=== PATIENT | female | born 1960 | race Caucasian/White ===

== ENCOUNTER 2018-07-03 06:22 | Emergency (ER) | payer MEDICAID ==
[~2018-07-03] VITALS: Ht 177.8 cm; Wt 109.0 kg
[~2018-07-03 06:22] MED LIST: BACL10TA PO; BECL8.7A3 IH; BENZ200C59 PO; FAMO-1 PO; MONT10TA21 PO; OMEP20CA10 PO; ROPI1TAB4 PO
[2018-07-03] MEDS ORDERED: HYDROmorphone 1 mg/ml syringe IM ONE (07:10)
[2018-07-03] MEDS ORDERED: orphenadrine citrate 60mg/2ml inj. IM ONE (07:10)
[2018-07-03] MEDS ORDERED: ketorolac trometh inj. 60 MG/2 ML VIAL IM ONE (07:10)
[2018-07-03 08:55] VITALS: BP 154/90
[2018-07-03] MEDS ORDERED: proCHLORperazine 10 MG/2 ml inj IM ONE (09:00)
[2018-07-03] MEDS ORDERED: HYDR-4353 PO (09:20)
== END 2018-07-03 10:17 | disposition home or self-care (01) ==
LOC: ER 06:22
DX: M54.42 Lumbago with sciatica, left side (principal); G89.29 Other chronic pain; J44.9 Chronic obstructive pulmonary disease, unspecified; K21.9 Gastro-esophageal reflux disease without esophagitis; Z90.49 Acquired absence of other specified parts of digestive tract; Z98.890 Other specified postprocedural states; Z88.0 Allergy status to penicillin; Z88.1 Allergy status to other antibiotic agents; Z88.5 Allergy status to narcotic agent; Z88.8 Allergy status to other drugs, medicaments and biological substances; Z79.899 Other long term (current) drug therapy
CPT/HCPCS: 72100; 96372; 99283; J0780; J1170; J1885; J2360

== ENCOUNTER 2018-09-19 12:59 | Inpatient (IN) | payer MEDICAID ==
[~2018-09-19] VITALS: Ht 177.8 cm; Wt 109.0 kg
[2018-09-19 13:49] LABS: BASOPHILS % (AUTO) 0.5 % (0-1); EOSINOPHILS % (AUTO) 0.3 % (0-6); HEMATOCRIT 40.4 % (35.0-45.0); HEMOGLOBIN 14.1 g/dl (12.0-16.0); LYMPHOCYTES # (AUTO) 1.6 X10'3 (1.1-4.8); LYMPHOCYTES % (AUTO) 33.4 % (21-51); MEAN CORPUSCULAR HEMOGLOBIN 30.4 PG (27.0-31.0); MEAN CORPUSCULAR HGB CONC 34.7 g/dL (33.0-36.5); MEAN CORPUSCULAR VOLUME 87.6 FL (78-98); MEAN PLATELET VOLUME 7.4 FL (7.4-10.4); MONOCYTES # (AUTO) 0.5 X10'3 (0-0.9); MONOCYTES % (AUTO) 10.8 % (2-12); NEUTROPHILS # (AUTO) 2.7 X10'3 (1.8-7.7); PLATELET COUNT 180 X10'3 (140-440); RED BLOOD COUNT 4.62 X10'6 (4.20-5.60); RED CELL DISTRIBUTION WIDTH 13.3 % (11.5-14.5); WHITE BLOOD COUNT 4.9 X10'3 (4.5-11.0)
[2018-09-19 14:04] LABS: ALANINE AMINOTRANSFERASE 39 U/L (12-78); ALBUMIN 3.3 G/DL (3.4-5.0); ALBUMIN/GLOBULIN RATIO 0.8 (1.1-1.5); ALKALINE PHOSPHATASE 101 IU/L (46-116); ANION GAP 12 (8-16); ASPARTATE AMINO TRANSFERASE 43 U/L (10-37); BILIRUBIN,TOTAL 0.3 MG/DL (0.1-1.0); BLOOD UREA NITROGEN 6 MG/DL (7-18); BUN/CREATININE RATIO 7.7 (6.6-38.0); CALCIUM 8.9 MG/DL (8.5-10.1); CHLORIDE 99 MMOL/L (99-107); CREATININE 0.78 MG/DL (0.40-0.90); GLUCOSE 135 MG/DL (70-104); SODIUM 136 MMOL/L (135-145); TOTAL CARBON DIOXIDE 25.2 MMOL/L (24-32); TOTAL PROTEIN 7.4 G/DL (6.4-8.2); eGFR 76 ML/MIN
[2018-09-19] MEDS ORDERED: potassium Cl 20 mEq SR tablet PO STA (14:21)
[2018-09-19] MEDS ORDERED: CHOL2000 PO (14:30)
[2018-09-19] MEDS ORDERED: CYCL10TA26 PO (14:30)
[2018-09-19] MEDS ORDERED: SENN-162 PO (14:38)
[2018-09-19] MEDS ORDERED: BECL7.3A INH (14:38)
[2018-09-19] MEDS ORDERED: ALBU18HF2 INH (14:38)
[2018-09-19] MEDS ORDERED: DILT180C95 PO (14:38)
[2018-09-19] MEDS ORDERED: diphenhydrAMINE 50 mg/ml inj IV ONE (15:00)
[2018-09-19] MEDS ORDERED: methylPREDNISolone sod succ 125mg/2ml vial IV ONE (15:00)
[2018-09-19] MEDS ORDERED: albuterol 2.5 MG/3 ML nebule NEB ONE (15:05)
[2018-09-19 15:36] LABS: D-DIMER 0.52 MG/L FEU (0-0.50); PARTIAL THROMBOPLASTIN TIME 33 SECONDS (22-32)
[2018-09-19] MEDS ORDERED: albuterol 2.5 MG/3 ML nebule ONE (17:32)
[2018-09-19] MEDS ORDERED: benzonatate 100mg capsule PO ONE (18:00)
[2018-09-19 18:05] LABS: ABG BASE EXCESS -2.1 mmol/L (-2.0-3.0); ABG HCO3 21.4 mmol/L (22.0-26.0); ABG OXYGEN SATURATION 95.1 % (95-98); ABG PH (T) 7.429 (7.350-7.450); ABG PO2 (T) 72.1 mmHg (83-108); ALLEN'S TEST Positive; FCOHb 0.8 % (0.5-1.5); FMetHb 0.1 % (0.3-1.12); FO2Hb 94.2 % (94-100); TOTAL HEMOGLOBIN 14.8 G/dl (12.0-16.0)
[2018-09-19] MEDS ORDERED: magnesium 4gm in 100ml NS 100 ML IV PRN (18:15)
[2018-09-19] MEDS ORDERED: magnesium hydroxide 30ml (MOM) UD suspension PO PRN (18:15)
[2018-09-19] MEDS ORDERED: potassium Cl 20 mEq SR tablet PO PRN (18:15)
[2018-09-19] MEDS ORDERED: potassium Cl 40MEQ/NS 500ml 500 ML IV PRN ×2 (18:15)
[2018-09-19] MEDS ORDERED: acetaminophen 325mg tablet PO PRN ×2 (18:15)
[2018-09-19] MEDS ORDERED: magnesium 2GM in 50ml NS 50 ML IV PRN (18:15)
[2018-09-19] MEDS ORDERED: magnesium Cl slow-release 64mg tablet PO PRN (18:15)
[2018-09-19] MEDS ORDERED: ondansetron/PF 4mg/2ml inj IV PRN (18:15)
[2018-09-19] MEDS: methylPREDNISolone sod succ 125mg/2ml vial IV SCH (18:39)
[2018-09-19] MEDS: albuterol 2.5 MG/3 ML nebule NEB SCH ×2 (19:04→23:14)
--- NOTE | 2018-09-19 19:13 | NUR ---
1ST ATTEMPT TO CALL REPORT @ 191, RECEIVING NURSE UNAVAILABLE
[2018-09-19] MEDS ORDERED: albuterol 2.5 MG/3 ML nebule NEB SCH (20:00)
[2018-09-19 20:15] VITALS: BP 120/72
[2018-09-19] MEDS: ROPINIRole 1mg tablet PO SCH (20:20)
[2018-09-19] MEDS: heparin, porcine 5000 units/ml vial SQ SCH (20:30)
[2018-09-19] MEDS ORDERED: temazepam 15mg capsule PO PRN (21:00)
[2018-09-19] MEDS: potassium Cl 20 mEq SR tablet PO PRN (21:43)
[2018-09-20] VITALS: BP 124/59
[2018-09-20] MEDS: potassium Cl 20 mEq SR tablet PO PRN (02:02)
[2018-09-20] MEDS: albuterol 2.5 MG/3 ML nebule NEB SCH ×3 (04:13→11:39)
[2018-09-20 05:17] LABS: MAGNESIUM 1.9 MG/DL (1.5-2.4); POTASSIUM 4.4 MMOL/L (3.5-5.1)
--- NOTE | 2018-09-20 06:35 | NUR ---
Problems reprioritized. Patient report given, questions answered & plan of care reviewed with Rosi MEYERS.
[2018-09-20 07:00] VITALS: BP 140/74
[2018-09-20] MEDS ORDERED: pantoprazole 40mg Tablet.DR PO SCH ×2 (07:30→19:25)
[2018-09-20] MEDS: K and/or MAG REPLACEMENT MC SCH (08:00)
[2018-09-20] MEDS ORDERED: non-formulary drug (Omeprazole 2 CAP) PO SCH (08:00)
[2018-09-20] MEDS: methylPREDNISolone sod succ 125mg/2ml vial IV SCH ×2 (10:21→16:30)
[2018-09-20] MEDS: levoFLOXACIN-Levaquin 500mg/D5 100 ML IV SCH (10:21)
[2018-09-20] MEDS: heparin, porcine 5000 units/ml vial SQ SCH ×2 (10:24→20:06)
[2018-09-20] MEDS: mag hydrox/Alum hydrox/simeth 30ml oral suspension PO PRN ×2 (10:51→19:18)
[2018-09-20] MEDS: diltiazem CD 180mg cap (once-daily) PO SCH (10:51)
[2018-09-20 11:00] VITALS: BP 117/53
--- NOTE | 2018-09-20 12:29 | NUR ---
PAGER ID: [phone] MESSAGE: Please call me to discuss patient care. Rosi MEYERS [phone] Page MD to discuss that the pt. states "breathing treatment not working" diarrhea since Sunday, pt. now states she has a sore throat, and that the pt. states decrease in appetite and RUQ abdominal pain. Awaiting response from .
--- NOTE | 2018-09-20 12:33 | NUR ---
return phone call. states he has not rounded on pt. yet and would like to wait to assess pt. before addressing different concerns. Will look to round with
[2018-09-20] MEDS ORDERED: benzocaine/menthol oral lozeng 1 EACH BOX MM PRN (13:35)
--- NOTE | 2018-09-20 13:49 | NUR ---
PAGER ID: [phone] MESSAGE: [phone] Fatoumata Huerta Allergic to ingredient in Atrovent. Please call me me to clarify orders. Thank you- Rosi MEYERS [phone] responded. Stated he will call the pharmacy and address and enter new inhalant orders.
[2018-09-20] MEDS: levalbuterol 0.63mg/3ml nebule IH SCH ×2 (14:51→20:35)
--- NOTE | 2018-09-20 15:51 | NUR ---
Malnutrition consult: Pt seen at bedside endorses a good appetite. Pt previously on a regular diet with documented PO intake 100% likely meeting nutrient needs. No visible fat or muscle wasting noted at the time of RD visit. Pt with no documented edema or decrease in muscle strength. Pt currently does not meet criteria for malnutrition. Nutrition consult re: pt/family education for poor diet. Pt given written and verbal healthy nutrition therapy education with RD contact information. Will remain available. Addendum: 09/20/18 at [address] Amended: Links added.
[2018-09-20 16:32] LABS: C DIFF ANTIGEN NEGATIVE (NEGATIVE); C DIFF SPECIMEN=DIARRHEA? ACCEPTABLE; C DIFFICILE TOXINS A&B NEGATIVE (Neg)
[2018-09-20 18:00] VITALS: BP 135/77
--- NOTE | 2018-09-20 18:29 | NUR ---
PT SITTING UP AT SIDE OF BED, AWAKE AND ALERT IN A STABLE CONDITION, EATING HER DINNER. REPORT GIVEN TO AYALA MEYERS.
--- NOTE | 2018-09-20 18:50 | NUR ---
Patient in room [facility]. I have received report from LUIGI Aranda and had the opportunity to ask questions and assume patient care. Addendum: 09/20/18 at 1850 by Ilene Mendoza RN Amended: Links added.
[2018-09-20] MEDS: ROPINIRole 1mg tablet PO SCH (20:05)
[2018-09-20] MEDS ORDERED: famotidine 20mg tablet PO SCH (21:00)
[2018-09-21] VITALS: BP 120/51
[2018-09-21] MEDS: methylPREDNISolone sod succ 125mg/2ml vial IV SCH ×2 (00:09→08:10)
[2018-09-21] MEDS: levalbuterol 0.63mg/3ml nebule IH SCH ×2 (02:18→08:35)
--- NOTE | 2018-09-21 06:25 | NUR ---
Patient in room [facility]. I have received report from LUIGI Holm and had the opportunity to ask questions and assume patient care.
--- NOTE | 2018-09-21 06:47 | NUR ---
Problems reprioritized. Patient report given, questions answered & plan of care reviewed with LUIGI MOLINA.
[2018-09-21 07:27] VITALS: BP 115/61
[2018-09-21] MEDS ORDERED: pantoprazole 40mg Tablet.DR PO SCH (07:30)
[2018-09-21 07:50] LABS: ALBUMIN 3.1 G/DL (3.4-5.0); ANION GAP 7 (8-16); BLOOD UREA NITROGEN 10 MG/DL (7-18); BUN/CREATININE RATIO 12.8 (6.6-38.0); CALCIUM 9.4 MG/DL (8.5-10.1); CHLORIDE 105 MMOL/L (99-107); CREATININE 0.78 MG/DL (0.40-0.90); GLUCOSE 149 MG/DL (70-104); MAGNESIUM 2.3 MG/DL (1.5-2.4); POTASSIUM 4.4 MMOL/L (3.5-5.1); SODIUM 139 MMOL/L (135-145); TOTAL CARBON DIOXIDE 26.9 MMOL/L (24-32); eGFR 76 ML/MIN
[2018-09-21] MEDS: K and/or MAG REPLACEMENT MC SCH (08:00)
[2018-09-21] MEDS: heparin, porcine 5000 units/ml vial SQ SCH (08:10)
[2018-09-21] MEDS: diltiazem CD 180mg cap (once-daily) PO SCH (08:10)
[2018-09-21] MEDS: levoFLOXACIN-Levaquin 500mg/D5 100 ML IV SCH (08:11)
[2018-09-21] MEDS ORDERED: LEVO500T2 PO (10:32)
[2018-09-21] MEDS ORDERED: PRED10TA23 PO (10:32)
[2018-09-21 11:00] VITALS: BP 111/50
--- NOTE | 2018-09-21 12:17 | NUR ---
O2 Sat at rest on room air:_87__% If below 89%: Recovery O2 Sat at rest on __2_LPM:__94_%:___% via____NC (mask/nasal cannula, etc..) No further documentation is necessary. If O2 Sat did not drop below 89% on room air,ambulate patient on room air. O2 Sat while ambulating on room air:___% Recovery O2 Sat while ambulating on ___LPM:___% No further documentation is necessary. If patient does not drop below 89% while ambulating, he/she does not qualify for home O2.
--- NOTE | 2018-09-21 14:10 | NUR ---
DC inst provided to pt. IV DC'd by other RN while primary RN on lunch. All belongings sent w/pt. WC to front lobby.
== END 2018-09-21 14:38 | disposition home or self-care (01) | DRG 145 ==
LOC: ER 12:59 → ED HOLD 18:15 → SUR 3N 20:00
PROVIDERS: ADMIT Internal Medicine; ATTEND Internal Medicine
DX: J20.9 Acute bronchitis, unspecified (principal); J44.0 Chronic obstructive pulmonary disease with (acute) lower respiratory infection; J44.1 Chronic obstructive pulmonary disease with (acute) exacerbation; J45.901 Unspecified asthma with (acute) exacerbation; K21.9 Gastro-esophageal reflux disease without esophagitis; R06.03 Acute respiratory distress; E87.6 Hypokalemia; R19.7 Diarrhea, unspecified; Z87.891 Personal history of nicotine dependence; Z90.49 Acquired absence of other specified parts of digestive tract; Z88.1 Allergy status to other antibiotic agents; Z88.5 Allergy status to narcotic agent; Z88.0 Allergy status to penicillin; Z88.8 Allergy status to other drugs, medicaments and biological substances
CPT/HCPCS: 36415; 36600; 71046; 80048; 80053; 82803; 83605; 83735; 83880; 84132; 84484; 85018; 85025; 85379; 85610; 85730; 87040; 87045; 87046; 87070; 87324; 87449; 87502; 87503; 93005; 94640; 94760; 96374; 96375; 99285; G0378; J1200; J1644; J1956; J2930; J7614

== ENCOUNTER 2019-02-21 05:36 | Day surgery (SDC) | payer MEDICAID ==
[2019-02-11 12:04] LABS: BASOPHILS # (AUTO) 0.1 X10'3 (0-0.2); BASOPHILS % (AUTO) 0.8 % (0-1); EOSINOPHILS # (AUTO) 0.2 X10'3 (0-0.9); EOSINOPHILS % (AUTO) 1.4 % (0-6); LYMPHOCYTES # (AUTO) 2.7 X10'3 (1.1-4.8); LYMPHOCYTES % (AUTO) 23.6 % (21-51); MEAN CORPUSCULAR HEMOGLOBIN 30.2 PG (27.0-31.0); MEAN CORPUSCULAR HGB CONC 34.3 g/dL (33.0-36.5); MEAN CORPUSCULAR VOLUME 88.2 FL (78-98); MEAN PLATELET VOLUME 7.8 FL (7.4-10.4); MONOCYTES # (AUTO) 0.7 X10'3 (0-0.9); MONOCYTES % (AUTO) 5.8 % (2-12); NEUTROPHILS # (AUTO) 7.9 X10'3 (1.8-7.7); NEUTROPHILS % (AUTO) 68.4 % (42-75); PRE OP HEMATOCRIT 43.4 % (35.0-45.0); PRE OP HEMOGLOBIN 14.9 g/dL (12.0-16.0); PRE OP PLATELET COUNT 313 X10'3 (140-440); RED BLOOD COUNT 4.93 X10'6 (4.20-5.60); RED CELL DISTRIBUTION WIDTH 13.2 % (11.5-14.5)
[2019-02-11 12:18] LABS: ALBUMIN 3.8 G/DL (3.4-5.0); ALKALINE PHOSPHATASE 104 IU/L (46-116); BLOOD UREA NITROGEN 7 MG/DL (7-18); BUN/CREATININE RATIO 7.4 (6.6-38.0); CALCIUM 9.4 MG/DL (8.5-10.1); CHLORIDE 104 MMOL/L (99-107); CREATININE 0.95 MG/DL (0.40-0.90); PRE OP ALT 36 U/L (30-65); PRE OP ANION GAP 11 (8-16); PRE OP AST 21 U/L (10-37); PRE OP BILIRUB, TOTAL 0.3 MG/DL (0.0-1.0); PRE OP GLUCOSE 124 MG/DL (70-104); PRE OP POTASSIUM 4.2 MMOL/L (3.4-5.1); PRE OP SODIUM 140 MMOL/L (135-145); TOTAL CARBON DIOXIDE 25.5 MMOL/L (24-32); TOTAL PROTEIN 7.8 G/DL (6.4-8.2); eGFR 60 ML/MIN
[2019-02-21] VITALS (9 sets, daily range): BP systolic 124–146; BP diastolic 69–82
[~2019-02-21] VITALS: Ht 177.8 cm; Wt 111.7 kg
[~2019-02-21 05:36] MED LIST changes: -BACL10TA PO; +BECL7.3A INH; -BECL8.7A3 IH; -BENZ200C59 PO; +CYCL10TA26 PO; +DILT-36 PO; -FAMO-1 PO; +FAMO40TA7 PO; +LEVA15HF4 INH; -MONT10TA21 PO; -OMEP20CA10 PO; +OMEP20CA11 PO; +TIOT4MIS5 INH; +albuterol 2.5 MG/3 ML nebule NEB ONE; +clindamycin-Cleocin 900mg/D5W 50 ML IV ONE; +famotidine 20mg tablet PO ONE; +ringers solution, lacted 1,000 ML IV SCH
[2019-02-21] MEDS ORDERED: LIDOcaine 1% (10mg/ml) 2ml vial ONE (06:04)
[2019-02-21] MEDS ORDERED: BUPIVAcaine/PF 2.5 mg/ml (0.25%) 30ml vial ONE ×2 (06:47→08:32)
[2019-02-21] MEDS ORDERED: ipratropium/albuterol 3ml nebule NEB PRN (07:10)
[2019-02-21] MEDS ORDERED: fentaNYL /PF 50mcg/ml 5ml ampule ONE (07:22)
[2019-02-21] MEDS ORDERED: midazolam 2 mg/2 ml injection ONE (07:22)
[2019-02-21] MEDS ORDERED: phenylephrine 10mg/ml inj. ONE (07:33)
[2019-02-21] MEDS ORDERED: ePHEDrine 50MG/ML INJ. ONE ×2 (07:33→10:12)
[2019-02-21] MEDS ORDERED: acetaminophen 1000 MG/100ml vial IV ONE (07:33)
[2019-02-21] MEDS ORDERED: sevoflurane 250ml liquid IH ONE (07:33)
[2019-02-21] MEDS ORDERED: ketamine 50mg/5ml syringe ONE (07:54)
[2019-02-21] MEDS ORDERED: ringers solution, lacted 1,000 ML IV SCH (08:41)
[2019-02-21] MEDS ORDERED: morphine 4 MG/ML inj SYRINge IV PRN ×2 (08:45)
[2019-02-21] MEDS ORDERED: HYDROmorphone inj. 0.5 MG/0.5 ML DISP.SYRIN IV PRN ×2 (08:45)
[2019-02-21] MEDS ORDERED: proCHLORperazine 10 MG/2 ml inj IV PRN (08:45)
--- NOTE | 2019-02-21 09:10 | NUR ---
Received from OR via BED, accompanied by Anesthesiologist DR MANDEL-- and report given by Anesthesiolgist. PATIENT A&OX4, DENIES PAIN, V/S WNL, NEUROVASCULAR CHECKS INTACT, 20G PIV RUE, SCD ON, DRESSING TO LEFT SHOULDER CDI WITH SLING ON WELL
[2019-02-21] MEDS ORDERED: HYDROcodone/acetaminophen 10/325mg tab PO PRN (09:20)
[2019-02-21] MEDS ORDERED: neostigmine methylsulfate 1 MG/ML 10ml vial ONE (10:12)
[2019-02-21] MEDS ORDERED: propofol inj 20 ML IV ONE (10:12)
[2019-02-21] MEDS ORDERED: rocuronium 10mg/ml inj IV ONE (10:12)
[2019-02-21] MEDS ORDERED: dexamethasone sod phosphate 4mg/ml inj. ONE (10:12)
[2019-02-21] MEDS ORDERED: LIDOcaine 2% (20mg/ml) 5ml vial ONE (10:12)
[2019-02-21] MEDS ORDERED: glycopyrrolate 0.2mg/ml inj ONE (10:12)
--- NOTE | 2019-02-21 10:20 | NUR ---
PATIENT A&OX4, DENIES PAIN, V/S WNL, NEUROVASCULAR CHECKS INTACT, CORRECTION PIV WAS NOT 20 IT WAS 18G PIV RUE D/C , SCD ON, DRESSING TO LEFT SHOULDER CDI WITH SLING ON WELL. I HAVE REVIEWED D/C INSTRUCTIONS WITH PATIENT AND FAMILY AND THEY HAVE VERBALIZED UNDERSTANDING. PATIENT D/C HOME WITH ALL BELONGINGS AND FAMILY GAVE TRANSPORT HOME.
== END 2019-02-21 10:20 | disposition home or self-care (01) ==
LOC: PAS 05:36
PROVIDERS: ATTEND Orthopaedic Surgery
DX: M19.012 Primary osteoarthritis, left shoulder (principal); M75.42 Impingement syndrome of left shoulder; M65.822 Other synovitis and tenosynovitis, left upper arm; M75.52 Bursitis of left shoulder; J43.9 Emphysema, unspecified; I10 Essential (primary) hypertension; M19.90 Unspecified osteoarthritis, unspecified site; K21.9 Gastro-esophageal reflux disease without esophagitis; M81.0 Age-related osteoporosis without current pathological fracture; G89.4 Chronic pain syndrome; E66.01 Morbid (severe) obesity due to excess calories; Z68.36 Body mass index [BMI] 36.0-36.9, adult; Z72.89 Other problems related to lifestyle; Z79.899 Other long term (current) drug therapy; Z88.1 Allergy status to other antibiotic agents; Z88.8 Allergy status to other drugs, medicaments and biological substances; Z88.0 Allergy status to penicillin; Z98.890 Other specified postprocedural states; Z87.891 Personal history of nicotine dependence
CPT/HCPCS: 29824; 29826; 36415; 80053; 82948; 85025; 93005; 94640; 94760; J0131; J1100; J2001; J2250; J2370; J2704; J2710; J3010; J3490; J7120; A4618; A6449; A7000

== ENCOUNTER 2021-10-11 05:40 | Inpatient (IN) | payer MEDICAID ==
[2021-10-06 15:02] LABS: BASOPHILS # (AUTO) 0.1 X10'3 (0-0.2); EOSINOPHILS # (AUTO) 0.2 X10'3 (0-0.9); EOSINOPHILS % (AUTO) 1.7 % (0-6); LYMPHOCYTES # (AUTO) 3.5 X10'3 (1.1-4.8); LYMPHOCYTES % (AUTO) 29.6 % (21-51); MEAN CORPUSCULAR HGB CONC 33.5 g/dL (33.0-36.5); MEAN CORPUSCULAR VOLUME 98.7 FL (78-98); MEAN PLATELET VOLUME 7.6 FL (7.4-10.4); MONOCYTES # (AUTO) 0.7 X10'3 (0-0.9); MONOCYTES % (AUTO) 6.4 % (2-12); NEUTROPHILS # (AUTO) 7.2 X10'3 (1.8-7.7); NEUTROPHILS % (AUTO) 61.3 % (42-75); PRE OP HEMATOCRIT 42.2 % (35.0-45.0); PRE OP HEMOGLOBIN 14.1 g/dL (12.0-16.0); PRE OP PLATELET COUNT 351 X10'3 (140-440); RED BLOOD COUNT 4.28 X10'6 (4.20-5.60); RED CELL DISTRIBUTION WIDTH 13.2 % (11.5-14.5)
[2021-10-06 15:19] LABS: ALKALINE PHOSPHATASE 98 IU/L (46-116); BLOOD UREA NITROGEN 8 MG/DL (7-18); BUN/CREATININE RATIO 9.8 (6.6-38.0); CALCIUM 9.4 MG/DL (8.5-10.1); CHLORIDE 101 MMOL/L (99-107); CREATININE 0.82 MG/DL (0.40-0.90); PRE OP ALT 16 U/L (30-65); PRE OP ANION GAP 10 (8-16); PRE OP AST 13 U/L (10-37); PRE OP BILIRUB, TOTAL 0.3 MG/DL (0.0-1.0); PRE OP GLUCOSE 93 MG/DL (70-104); PRE OP POTASSIUM 4.3 MMOL/L (3.4-5.1); PRE OP SODIUM 136 MMOL/L (135-145); TOTAL CARBON DIOXIDE 24.8 MMOL/L (24-32); TOTAL PROTEIN 8.1 G/DL (6.4-8.2); eGFR 71 ML/MIN
[2021-10-11] VITALS (33 sets, daily range): BP systolic 75–127; BP diastolic 44–64
[~2021-10-11] VITALS: Ht 177.8 cm; Wt 101.5 kg
[~2021-10-11 05:40] MED LIST changes: +DICL-343 PO; +MONT-40 PO; -OMEP20CA11 PO; +OMEP20CA15 PO; +PRAV40TA3 PO; -ROPI1TAB4 PO; +ROPI1TAB6 PO; +acetaminophen 325mg tablet PO ONE; -albuterol 2.5 MG/3 ML nebule NEB ONE; +cefazolin/dext.iso 2gm/50ml IV ONE; +celeCOXIB 100mg capsule PO ONE; -clindamycin-Cleocin 900mg/D5W 50 ML IV ONE; +gabapentin 300mg capsule PO ONE; +metoclopramide 5 mg/ml inj IV ONE; +oxyCODONE SR 10mg (sust. release) tab -2 tabs (20mg) PO ONE; +tranexamic acid inj. 1,000 MG in 0.7% saline 100 ML PMX IV ONE; +vancomycin 1,500 MG in NS 300ml IV soln IV ONE
[2021-10-11] MEDS ORDERED: HYDROcodone/acetaminophen 10/325mg tab PO PRN (06:30)
[2021-10-11] MEDS ORDERED: levalbuterol 1.25mg/0.5ml nebule IH PRN ×2 (06:30→08:50)
[2021-10-11] MEDS ORDERED: HYDROmorphone 1 mg/ml syringe IV PRN (06:30)
[2021-10-11] MEDS ORDERED: magnesium hydroxide 30ml (MOM) UD suspension PO PRN (06:30)
[2021-10-11] MEDS ORDERED: diphenhydrAMINE 25mg capsule PO PRN ×2 (06:30)
[2021-10-11] MEDS ORDERED: acetaminophen 325mg tablet PO PRN (06:30)
[2021-10-11] MEDS: potassium cl 20mEq in 1/2 NS 1,000 ML IV SCH ×3 (06:30→22:30)
[2021-10-11] MEDS ORDERED: HYDROmorphone inj. 0.5 MG/0.5 ML DISP.SYRIN IV PRN (06:30)
[2021-10-11] MEDS ORDERED: bisacodyl 10mg suppository rectal RC PRN (06:30)
--- NOTE | 2021-10-11 06:50 | NUR ---
PT PREPPED FOR SURGERY, COMPLAINING OF A 10 OUT OF 10 PAIN. PATIENT STATES SHE HAS CHRONIC BACK PAINAFTER HER FUSION, SHE IS LYING ON HER LEFT SIDE, STATES THE PAIN IS BETTER THIS WAY. BILATERAL POSTERIAL TIBIAL PULSES ARE PALPABLE, FEET ARE WARM AND DRY, PALE IN COLOR. SENSATION IS INTACT BILATERALLY
[2021-10-11] MEDS ORDERED: sevoflurane 250ml liquid IH ONE (07:12)
[2021-10-11] MEDS ORDERED: MIDAZolam 1 MG/ML 5ML VIAL ONE (07:13)
[2021-10-11] MEDS ORDERED: FENTANYL CITRATE/PF 50 MCG/1 ML VIAL ONE (07:13)
[2021-10-11] MEDS ORDERED: morphine /PF 1mg/ml 10ml inj. ONE (07:14)
[2021-10-11] MEDS ORDERED: ketorolac trometh. 30mg/ml inj. ONE (07:18)
[2021-10-11] MEDS ORDERED: cloNIDine hcl/PF 100mcg/ml inj ONE (07:19)
[2021-10-11] MEDS ORDERED: ROPIVAcaine 0.5% (5mg/ml) 30ml vial ONE (07:19)
[2021-10-11] MEDS ORDERED: epiNEPHrine 1 mg/ml inj ONE (07:19)
[2021-10-11] MEDS: gabapentin 300mg capsule PO SCH ×3 (08:00→21:19)
[2021-10-11] MEDS ORDERED: vancomycin 1,000mg inj ONE (08:00)
[2021-10-11] MEDS: clindamycin-Cleocin 900mg/D5W 50 ML IV SCH ×3 (08:00→23:45)
[2021-10-11] MEDS: ascorbic acid 500mg tablet PO SCH ×2 (08:00→21:20)
[2021-10-11] MEDS ORDERED: ondansetron/PF 4mg/2ml inj IV PRN (08:25)
[2021-10-11] MEDS ORDERED: morphine 2 MG/ML inj. syringe IV PRN (08:25)
[2021-10-11] MEDS ORDERED: diphenhydrAMINE 50 mg/ml inj IV PRN (08:25)
[2021-10-11] MEDS ORDERED: ringers solution, lacted 1,000 ML IV SCH (08:25)
[2021-10-11] MEDS ORDERED: morphine 4 MG/ML inj SYRINge IV PRN (08:25)
[2021-10-11] MEDS ORDERED: naloxone 2mg/2ml inj 2 MG in normal saline 500ml IV soln 500 ML IV PRN (08:25)
[2021-10-11] MEDS ORDERED: proCHLORperazine 10 MG/2 ml inj IV PRN (08:25)
[2021-10-11] MEDS: aspirin 325mg tablet PO SCH (08:30)
--- NOTE | 2021-10-11 08:43 | NUR ---
Received from OR via hospital bed, accompanied by Anesthesiologist Dr. Garcia and CANE LOADER and report given by Anesthesiolgist. Pt arrives drowsy but awake with verbal stimuli, dressing to R hip, clean/dry/intact, minesh drain intact with green light illumination. Pt denies pain. Giving 500 LR bolus per anesthesiologist. Addendum: 10/11/21 at 0910 by Liz Gilmore RN Amended: Links added.
[2021-10-11] MEDS ORDERED: levalbuterol 0.63mg/3ml nebule IH PRN (09:10)
[2021-10-11] MEDS ORDERED: albumin (Human) 5% 250ml 250 ML IV ONE ×2 (10:15→11:45)
[2021-10-11] MEDS ORDERED: tranexamic acid 1gm/0.7% sal. 100 ML IV ONE (12:00)
--- NOTE | 2021-10-11 12:33 | NUR ---
pt's SBP has remained in avgerage of 80's, with 1 LR, and 2x albumin 5% given. Pt has been cognitive since coming from OR, aware of pt status throughout stay in PACU and has approved discharge to surgical floor. Report called to receiving RN Torri. Transferred via bed Belongings . Receiving RN at bedside upon delivery, bed in lowest position with call light in reach. Pt oriented to room safety. side rails up x2. Special Issues communicated to receiving nurse; yes. Addendum: 10/11/21 at 1625 by Liz Gilmore RN Amended: Links added.
--- NOTE | 2021-10-11 16:15 | NUR ---
Per Dr. Garcia PROTECTIVE SERVICES SOCIAL WORKER checked on pt's void status with primary RN. No void by patient at this point, advised to bladder scan and follow up. Addendum: 10/11/21 at 1625 by Liz Gilmore RN Amended: Links added.
--- NOTE | 2021-10-11 18:33 | NUR ---
Patient in room [facility]. I have received report from judy MEYERS and had the opportunity to ask questions and assume patient care. Addendum: 10/11/21 at 1834 by Yuliana Jesus RN Torri MEYERS
--- NOTE | 2021-10-11 18:35 | NUR ---
Patient in room [facility]. I have received report from LUIGI TIMMONS FROM [facility]ERY and had the opportunity to ask questions and assume patient care.
--- NOTE | 2021-10-11 18:35 | NUR ---
Problems reprioritized. Patient report given, questions answered & plan of care reviewed with LUIGI GARZA.
[2021-10-11] MEDS ORDERED: vancomycin/NS 1 GM ADD-VANTAGE 250 ML IV SCH (20:00)
[2021-10-11] MEDS ORDERED: sennosides 8.6mg tablet PO SCH (21:00)
[2021-10-11] MEDS ORDERED: pravastatin 40mg tablet PO SCH (21:00)
[2021-10-11] MEDS: ROPINIRole 1mg tablet PO SCH (21:19)
[2021-10-11] MEDS: HYDROcodone/acetaminophen 10/325mg tab PO PRN (23:45)
[2021-10-12] VITALS: BP 127/50
[2021-10-12] MEDS: levalbuterol 0.63mg/3ml nebule IH SCH ×3 (05:58→07:23)
[2021-10-12] MEDS: ipratropium 0.5 MG/2.5ML nebule IH SCH ×3 (05:59→10:33)
[2021-10-12] MEDS: budesonide 0.5mg/2ml UD nebule IH SCH ×2 (05:59→07:23)
[2021-10-12 06:00] VITALS: BP 88/53
[2021-10-12 06:27] LABS: BASOPHILS % (AUTO) 0.5 % (0-1); EOSINOPHILS # (AUTO) 0.2 X10'3 (0-0.9); EOSINOPHILS % (AUTO) 2.2 % (0-6); HEMATOCRIT 31.7 % (35.0-45.0); HEMOGLOBIN 11.2 g/dl (12.0-16.0); LYMPHOCYTES # (AUTO) 1.8 X10'3 (1.1-4.8); LYMPHOCYTES % (AUTO) 18.2 % (21-51); MEAN CORPUSCULAR HEMOGLOBIN 34.6 PG (27.0-31.0); MEAN CORPUSCULAR HGB CONC 35.3 g/dL (33.0-36.5); MEAN CORPUSCULAR VOLUME 97.8 FL (78-98); MEAN PLATELET VOLUME 7.4 FL (7.4-10.4); MONOCYTES # (AUTO) 0.8 X10'3 (0-0.9); MONOCYTES % (AUTO) 7.8 % (2-12); NEUTROPHILS # (AUTO) 7.2 X10'3 (1.8-7.7); NEUTROPHILS % (AUTO) 71.3 % (42-75); PLATELET COUNT 231 X10'3 (140-440); RED BLOOD COUNT 3.25 X10'6 (4.20-5.60); RED CELL DISTRIBUTION WIDTH 12.7 % (11.5-14.5); WHITE BLOOD COUNT 10.1 X10'3 (4.5-11.0)
[2021-10-12] MEDS: potassium cl 20mEq in 1/2 NS 1,000 ML IV SCH (06:30)
--- NOTE | 2021-10-12 06:41 | NUR ---
Patient in room [facility]. I have received report from rekha kaplan and had the opportunity to ask questions and assume patient care.
--- NOTE | 2021-10-12 06:41 | NUR ---
Problems reprioritized. Patient report given, questions answered & plan of care reviewed with Yumiko MEYERS.
[2021-10-12 06:46] LABS: CHLORIDE 101 MMOL/L (99-107); POTASSIUM 4.6 MMOL/L (3.5-5.1); SODIUM 135 MMOL/L (135-145)
[2021-10-12 06:56] LABS: ANION GAP 9 (8-16); TOTAL CARBON DIOXIDE 24.7 MMOL/L (24-32)
[2021-10-12 07:20] VITALS: BP 92/62
[2021-10-12] MEDS: ascorbic acid 500mg tablet PO SCH (07:27)
[2021-10-12] MEDS: ROPINIRole 1mg tablet PO SCH (07:28)
[2021-10-12] MEDS: gabapentin 300mg capsule PO SCH (07:28)
[2021-10-12] MEDS: aspirin 325mg tablet PO SCH (07:29)
[2021-10-12] MEDS ORDERED: pantoprazole 40mg Tablet.DR PO SCH (07:30)
[2021-10-12] MEDS ORDERED: multivitamins, therapeutics tablet PO SCH (08:00)
[2021-10-12] MEDS ORDERED: diltiazem CD 180mg cap (once-daily) PO SCH (08:00)
[2021-10-12] MEDS ORDERED: montelukast 10mg tablet PO SCH (08:00)
[2021-10-12] MEDS ORDERED: famotidine 20mg tablet PO SCH (08:00)
[2021-10-12] MEDS: HYDROcodone/acetaminophen 10/325mg tab PO PRN (09:54)
--- NOTE | 2021-10-12 13:00 | NUR ---
PT DISCHARGED IN STABLE CONDITION. LEFT FACILITY IN PRIVATE VEHICLE WITH FAMILY. IV DC. FOLLOW UP INSTRUCTIONS GIVEN, ALL QUESTIONS ANSWERED. ALL BELONGINGS IN HAND. Addendum: 10/12/21 at 1551 by Loreto Anguiano RN Amended: Links added.
[2021-10-12] MEDS ORDERED: celeCOXIB 100mg capsule PO SCH (20:00)
== END 2021-10-12 12:48 | disposition home or self-care (01) | DRG 324 ==
LOC: PAS IN 05:40 → SUR 3N 12:33
PROVIDERS: ADMIT Orthopaedic Surgery; ATTEND Orthopaedic Surgery
PROC: 0SR906Z Replacement of Right Hip Joint with Oxidized Zirconium on Polyethylene Synthetic Substitute, Open Approach (ICD-10-PCS; principal; 2021-10-11 07:12)
DX: M16.11 Unilateral primary osteoarthritis, right hip (principal); G89.29 Other chronic pain; I10 Essential (primary) hypertension; J43.9 Emphysema, unspecified; M54.9 Dorsalgia, unspecified; K21.9 Gastro-esophageal reflux disease without esophagitis; Z79.51 Long term (current) use of inhaled steroids; Z79.82 Long term (current) use of aspirin; Z87.891 Personal history of nicotine dependence; Z88.0 Allergy status to penicillin; Z88.8 Allergy status to other drugs, medicaments and biological substances; Z79.899 Other long term (current) drug therapy
CPT/HCPCS: 36415; 71046; 72170; 80051; 80053; 82948; 85025; 86885; 86900; 86901; 87081; 94640; 94760; 97116; 97161; 97530; A4615; A7000; C1776; G0378; J0171; J0735; J1170; J1885; J2250; J2274; J2765; J2795; J3010; J3370; J3480; J3490; J7120; J7614; P9045; U0003; U0005

== ENCOUNTER 2022-06-08 11:24 | Inpatient (IN) | payer MEDICAID ==
[2022-06-06 10:04] LABS: BASOPHILS # (AUTO) 0.1 X10'3 (0-0.2); BASOPHILS % (AUTO) 0.6 % (0-1); EOSINOPHILS # (AUTO) 0.3 X10'3 (0-0.9); EOSINOPHILS % (AUTO) 2.4 % (0-6); LYMPHOCYTES # (AUTO) 2.7 X10'3 (1.1-4.8); MEAN CORPUSCULAR HEMOGLOBIN 28.5 PG (27.0-31.0); MEAN CORPUSCULAR HGB CONC 33.3 g/dL (33.0-36.5); MEAN CORPUSCULAR VOLUME 85.5 FL (78-98); MEAN PLATELET VOLUME 7.5 FL (7.4-10.4); MONOCYTES # (AUTO) 0.9 X10'3 (0-0.9); MONOCYTES % (AUTO) 7.7 % (2-12); NEUTROPHILS # (AUTO) 7.4 X10'3 (1.8-7.7); NEUTROPHILS % (AUTO) 65.3 % (42-75); PRE OP HEMATOCRIT 41.1 % (35.0-45.0); PRE OP HEMOGLOBIN 13.7 g/dL (12.0-16.0); PRE OP PLATELET COUNT 310 X10'3 (140-440); RED CELL DISTRIBUTION WIDTH 14.3 % (11.5-14.5)
[2022-06-06 10:13] LABS: ALBUMIN 3.7 G/DL (3.4-5.0); ALBUMIN/GLOBULIN RATIO 0.9 (1.1-1.5); ALKALINE PHOSPHATASE 123 IU/L (46-116); BLOOD UREA NITROGEN 11 MG/DL (7-18); BUN/CREATININE RATIO 10.9 (6.6-38.0); CALCIUM 9.2 MG/DL (8.5-10.1); CHLORIDE 102 MMOL/L (99-107); CREATININE 1.01 MG/DL (0.40-0.90); PRE OP ALT 15 U/L (30-65); PRE OP ANION GAP 14 (8-16); PRE OP AST 14 U/L (10-37); PRE OP BILIRUB, TOTAL 0.2 MG/DL (0.0-1.0); PRE OP GLUCOSE 109 MG/DL (70-104); PRE OP POTASSIUM 4.1 MMOL/L (3.4-5.1); PRE OP SODIUM 138 MMOL/L (135-145); TOTAL CARBON DIOXIDE 21.6 MMOL/L (24-32); TOTAL PROTEIN 7.6 G/DL (6.4-8.2); eGFR 56 ML/MIN
[2022-06-08] VITALS (15 sets, daily range): BP systolic 91–139; BP diastolic 52–85
[~2022-06-08] VITALS: Ht 177.8 cm; Wt 98.8 kg
[~2022-06-08 11:24] MED LIST changes: +albuterol 2.5 MG/3 ML nebule NEB ONE; +ceFAZolin inj. 2,000 MG in dextrose 5%-water 100 ML IV ONE; -cefazolin/dext.iso 2gm/50ml IV ONE; -tranexamic acid inj. 1,000 MG in 0.7% saline 100 ML PMX IV ONE; +tranexamic acid inj. 1,000 MG in normal saline IV soln 100ML IV ONE
[2022-06-08] MEDS ORDERED: ketorolac trometh. 30mg/ml inj. ONE (12:12)
[2022-06-08] MEDS ORDERED: cloNIDine hcl/PF 100mcg/ml inj ONE (12:12)
[2022-06-08] MEDS ORDERED: vancomycin 1,000mg inj ONE (12:12)
[2022-06-08] MEDS ORDERED: epiNEPHrine 1 mg/ml inj ONE (12:12)
[2022-06-08] MEDS ORDERED: clindamycin-Cleocin 900mg/D5W 50 ML IV ONE (12:13)
[2022-06-08] MEDS ORDERED: ROPIVAcaine 0.5% (5mg/ml) 30ml vial ONE (12:13)
[2022-06-08] MEDS ORDERED: PCA WASTE DOCUMENTATION MC SCH (12:36)
--- NOTE | 2022-06-08 12:38 | NUR ---
PATIENT DID NOT WATCH VIDEO OR USE OINTMENT, [facility] INTACT PULSES MARKED
[2022-06-08] MEDS ORDERED: HYDROmorphone 1 mg/ml syringe IV PRN (12:40)
[2022-06-08] MEDS ORDERED: ondansetron/PF 4mg/2ml inj IV PRN (12:40)
[2022-06-08] MEDS ORDERED: diphenhydrAMINE 25mg capsule PO PRN ×2 (12:40)
[2022-06-08] MEDS ORDERED: bisacodyl 10mg suppository rectal RC PRN (12:40)
[2022-06-08] MEDS ORDERED: albuterol 2.5 MG/3 ML nebule NEB SCH (12:40)
[2022-06-08] MEDS ORDERED: acetaminophen 325mg tablet PO PRN (12:40)
[2022-06-08] MEDS ORDERED: HYDROmorphone inj. 0.5 MG/0.5 ML DISP.SYRIN IV PRN (12:40)
[2022-06-08] MEDS ORDERED: ringers solution, lacted 1,000 ML IV SCH (13:05)
[2022-06-08] MEDS ORDERED: proCHLORperazine 10 MG/2 ml inj IV PRN (13:05)
[2022-06-08] MEDS ORDERED: morphine 2 MG/ML inj. syringe IV PRN (13:05)
[2022-06-08] MEDS ORDERED: labetalol 20mg/4ml (5mg/ml) syringe IV PRN (13:05)
[2022-06-08] MEDS ORDERED: hydrALAZINE 20mg/ml inj. IV PRN (13:05)
[2022-06-08] MEDS ORDERED: sevoflurane 250ml liquid IH ONE (13:05)
[2022-06-08] MEDS ORDERED: acetaminophen 1,000mg/100ml IV 100 ML IV PRN (13:05)
[2022-06-08] MEDS ORDERED: HYDROmorphone/PF 0.2 MG/ML SYRINGE IV PRN ×2 (13:05)
[2022-06-08] MEDS ORDERED: morphine 4 MG/ML inj SYRINge IV PRN (13:05)
[2022-06-08] MEDS ORDERED: midazolam 1 mg/ML 2ml injection ONE (13:12)
[2022-06-08] MEDS ORDERED: gentamicin 40 MG/1 ML inj ONE ×3 (13:17→14:14)
[2022-06-08] MEDS ORDERED: fentaNYL /PF 50mcg/ml 5ml ampule ONE (13:25)
[2022-06-08] MEDS ORDERED: 0.9 % SODIUM CHLORIDE 10 ML VIAL ONE ×3 (13:37→14:52)
[2022-06-08] MEDS ORDERED: dexamethasone sod phosphate 4mg/ml inj. ONE (13:37)
[2022-06-08] MEDS ORDERED: rocuronium 10mg/ml inj IV ONE (13:37)
[2022-06-08] MEDS ORDERED: LIDOcaine 2% (20mg/ml) 5ml vial ONE (13:37)
[2022-06-08] MEDS ORDERED: propofol inj 20 ML IV ONE (13:37)
[2022-06-08] MEDS ORDERED: ePHEDrine 50MG/ML INJ. ONE (14:51)
[2022-06-08] MEDS ORDERED: gentamicin 40 MG/1 ML inj IJ ONE (15:00)
[2022-06-08] MEDS ORDERED: tobramycin sulfate 1.2gm vial TP ONE (15:00)
[2022-06-08] MEDS ORDERED: morphine 10mg/ml inj. ONE (16:02)
[2022-06-08] MEDS ORDERED: glycopyrrolate 0.2mg/ml inj ONE (16:11)
[2022-06-08] MEDS ORDERED: neostigmine methylsulfate 1 MG/ML 10ml vial ONE (16:11)
--- NOTE | 2022-06-08 17:25 | NUR ---
PT TRANSPORTED TO ROOM ON A HOSPITAL BED WITH O2 AT 2LPM ON . FAMILY FOLLOWED STAFF TO THE FLOOR AND BROUGHT TO WAITING AREA. PT WAS HOOKED UP TO MONITOR IN ROOM AND . BED WAS LOCKED AND SIDERAILS UP. SCD CONNECTED TO THE LEFT LEG AND RUNNING. NURSE AT BEDSIDE. Addendum: 06/08/22 at 1749 by Gracia Mcleod RN Amended: Links added.
--- NOTE | 2022-06-08 17:45 | NUR ---
Patient started on post op vitals , skin check done, call light in place patient given ice chips family at bedside.
--- NOTE | 2022-06-08 18:33 | NUR ---
Problems reprioritized. Patient report given, questions answered & plan of care reviewed with Pat RN.
[2022-06-08] MEDS ORDERED: NORMAL SALINE IV ONE (19:30)
[2022-06-08] MEDS ORDERED: TRANEXAMIC ACID IV ONE (19:30)
[2022-06-08] MEDS: potassium cl 20mEq in 1/2 NS 1,000 ML IV SCH ×2 (20:40→23:55)
[2022-06-08] MEDS: ipratropium 0.5 MG/2.5ML nebule NEB SCH (21:00)
[2022-06-08] MEDS: budesonide 0.5mg/2ml UD nebule IH SCH (21:00)
[2022-06-08] MEDS: montelukast 10mg tablet PO SCH (21:04)
[2022-06-08] MEDS: sennosides 8.6mg tablet PO SCH (21:05)
[2022-06-08] MEDS: famotidine 20mg tablet PO SCH (21:05)
[2022-06-08] MEDS: atorvastatin 10mg tablet PO SCH (21:05)
[2022-06-08] MEDS: gabapentin 300mg capsule PO SCH (21:05)
[2022-06-08] MEDS: ascorbic acid 500mg tablet PO SCH (21:06)
[2022-06-08] MEDS: ROPINIRole 1mg tablet PO SCH (21:12)
[2022-06-08] MEDS: diltiazem CD 180mg cap (once-daily) PO SCH (21:14)
[2022-06-08] MEDS: HYDROcodone/acetaminophen 10/325mg tab PO PRN (21:26)
[2022-06-09 02:00] VITALS: BP 111/57
[2022-06-09] MEDS: ipratropium 0.5 MG/2.5ML nebule NEB SCH ×4 (03:00→20:29)
[2022-06-09] MEDS: HYDROcodone/acetaminophen 10/325mg tab PO PRN ×3 (03:29→17:13)
[2022-06-09] MEDS: potassium cl 20mEq in 1/2 NS 1,000 ML IV SCH ×3 (04:40→21:19)
[2022-06-09 06:00] VITALS: BP 110/57
[2022-06-09 06:31] LABS: BASOPHILS % (AUTO) 0 % (0-1); EOSINOPHILS % (AUTO) 0 % (0-6); HEMATOCRIT 31.3 % (35.0-45.0); HEMOGLOBIN 10.4 g/dl (12.0-16.0); LYMPHOCYTES % (AUTO) 6.4 % (21-51); MEAN CORPUSCULAR HEMOGLOBIN 28.8 PG (27.0-31.0); MEAN CORPUSCULAR HGB CONC 33.3 g/dL (33.0-36.5); MEAN CORPUSCULAR VOLUME 86.7 FL (78-98); MEAN PLATELET VOLUME 7.6 FL (7.4-10.4); MONOCYTES # (AUTO) 0.8 X10'3 (0-0.9); MONOCYTES % (AUTO) 5.1 % (2-12); NEUTROPHILS # (AUTO) 14.4 X10'3 (1.8-7.7); NEUTROPHILS % (AUTO) 88.5 % (42-75); PLATELET COUNT 259 X10'3 (140-440); RED BLOOD COUNT 3.61 X10'6 (4.20-5.60); RED CELL DISTRIBUTION WIDTH 13.8 % (11.5-14.5); WHITE BLOOD COUNT 16.3 X10'3 (4.5-11.0)
[2022-06-09 07:23] LABS: ANION GAP 6 (8-16); CHLORIDE 100 MMOL/L (99-107); POTASSIUM 4.8 MMOL/L (3.5-5.1); SODIUM 130 MMOL/L (135-145); TOTAL CARBON DIOXIDE 23.9 MMOL/L (24-32)
[2022-06-09] MEDS: pantoprazole 40mg Tablet.DR PO SCH (07:25)
[2022-06-09] MEDS: gabapentin 300mg capsule PO SCH ×3 (07:26→20:18)
[2022-06-09] MEDS: ROPINIRole 1mg tablet PO SCH ×2 (07:26→20:18)
[2022-06-09] MEDS: multivitamins, therapeutics tablet PO SCH (07:26)
[2022-06-09] MEDS: ascorbic acid 500mg tablet PO SCH ×2 (07:27→20:19)
[2022-06-09] MEDS: budesonide 0.5mg/2ml UD nebule IH SCH ×2 (09:09→20:29)
[2022-06-09 10:00] VITALS: BP 94/54
[2022-06-09 18:00] VITALS: BP 122/56
--- NOTE | 2022-06-09 18:30 | NUR ---
Problems reprioritized. Patient report given, questions answered & plan of care reviewed with ratna kaplan.
[2022-06-09] MEDS: celeCOXIB 100mg capsule PO SCH (20:18)
[2022-06-09] MEDS: diltiazem CD 180mg cap (once-daily) PO SCH (20:18)
[2022-06-09] MEDS ORDERED: DAPTOMYCIN IV SCH ×2 (20:19→20:23)
[2022-06-09] MEDS: sennosides 8.6mg tablet PO SCH (20:19)
[2022-06-09] MEDS ORDERED: NORMAL SALINE IV SCH ×2 (20:19→20:23)
[2022-06-09] MEDS: atorvastatin 10mg tablet PO SCH (20:19)
[2022-06-09] MEDS: famotidine 20mg tablet PO SCH (20:19)
[2022-06-09] MEDS: montelukast 10mg tablet PO SCH (20:23)
[2022-06-09] MEDS: CefTRIAXone 2gm/D5W 50ml IV SCH (21:19)
[2022-06-09] MEDS: NORMAL SALINE IV SCH (21:20)
[2022-06-09] MEDS: DAPTOMYCIN IV SCH (21:20)
[2022-06-09] MEDS: magnesium hydroxide 30ml (MOM) UD suspension PO PRN (21:28)
[2022-06-09 22:00] VITALS: BP 118/59
[2022-06-10] MEDS: HYDROcodone/acetaminophen 10/325mg tab PO PRN ×2 (01:41→07:59)
[2022-06-10] MEDS: ipratropium 0.5 MG/2.5ML nebule NEB SCH ×3 (02:06→14:43)
[2022-06-10 06:00] VITALS: BP 133/50
--- NOTE | 2022-06-10 06:23 | NUR ---
Problems reprioritized. Patient report given, questions answered & plan of care reviewed with Iain High
[2022-06-10 07:28] LABS: BASOPHILS % (AUTO) 0.1 % (0-1); EOSINOPHILS # (AUTO) 0.1 X10'3 (0-0.9); EOSINOPHILS % (AUTO) 0.5 % (0-6); HEMATOCRIT 28.3 % (35.0-45.0); HEMOGLOBIN 9.6 g/dl (12.0-16.0); LYMPHOCYTES # (AUTO) 2.4 X10'3 (1.1-4.8); LYMPHOCYTES % (AUTO) 16.8 % (21-51); MEAN CORPUSCULAR HEMOGLOBIN 29.3 PG (27.0-31.0); MEAN CORPUSCULAR HGB CONC 33.9 g/dL (33.0-36.5); MEAN CORPUSCULAR VOLUME 86.6 FL (78-98); MEAN PLATELET VOLUME 7.7 FL (7.4-10.4); MONOCYTES % (AUTO) 6.7 % (2-12); NEUTROPHILS % (AUTO) 75.9 % (42-75); PLATELET COUNT 257 X10'3 (140-440); RED BLOOD COUNT 3.27 X10'6 (4.20-5.60); RED CELL DISTRIBUTION WIDTH 14.3 % (11.5-14.5); WHITE BLOOD COUNT 14.5 X10'3 (4.5-11.0)
[2022-06-10] MEDS: budesonide 0.5mg/2ml UD nebule IH SCH (07:53)
[2022-06-10] MEDS: celeCOXIB 100mg capsule PO SCH ×2 (07:59→20:48)
[2022-06-10] MEDS: multivitamins, therapeutics tablet PO SCH (07:59)
[2022-06-10] MEDS: ROPINIRole 1mg tablet PO SCH ×2 (07:59→20:48)
[2022-06-10] MEDS: ascorbic acid 500mg tablet PO SCH ×2 (07:59→20:48)
[2022-06-10] MEDS: gabapentin 300mg capsule PO SCH ×3 (08:00→20:48)
[2022-06-10] MEDS: pantoprazole 40mg Tablet.DR PO SCH (08:00)
[2022-06-10 10:23] VITALS: BP 124/65
[2022-06-10 18:00] VITALS: BP 114/60
--- NOTE | 2022-06-10 18:29 | NUR ---
Report given to Mikki Kaye Rn, patient resting comfortably in bed at this time.
--- NOTE | 2022-06-10 18:35 | NUR ---
Patient in room [facility]. I have received report from BECKA Case and had the opportunity to ask questions and assume patient care.
[2022-06-10] MEDS: CefTRIAXone 2gm/D5W 50ml IV SCH (19:34)
[2022-06-10] MEDS: atorvastatin 10mg tablet PO SCH (20:48)
[2022-06-10] MEDS: diltiazem CD 180mg cap (once-daily) PO SCH (20:48)
[2022-06-10] MEDS: NORMAL SALINE IV SCH (20:49)
[2022-06-10] MEDS: montelukast 10mg tablet PO SCH (20:49)
[2022-06-10] MEDS: famotidine 20mg tablet PO SCH (20:49)
[2022-06-10] MEDS: DAPTOMYCIN IV SCH (20:49)
[2022-06-10] MEDS: sennosides 8.6mg tablet PO SCH (20:49)
[2022-06-10 22:00] VITALS: BP 115/55
[2022-06-11] MEDS: HYDROcodone/acetaminophen 10/325mg tab PO PRN ×2 (00:18→06:32)
[2022-06-11 06:00] VITALS: BP 120/70
--- NOTE | 2022-06-11 06:42 | NUR ---
Problems reprioritized. Patient report given, questions answered & plan of care reviewed with BALBINA MEYERS.
[2022-06-11 07:23] LABS: BASOPHILS % (AUTO) 0.3 % (0-1); EOSINOPHILS # (AUTO) 0.4 X10'3 (0-0.9); HEMATOCRIT 29.7 % (35.0-45.0); HEMOGLOBIN 10.1 g/dl (12.0-16.0); LYMPHOCYTES # (AUTO) 3.4 X10'3 (1.1-4.8); LYMPHOCYTES % (AUTO) 22.8 % (21-51); MEAN CORPUSCULAR HEMOGLOBIN 29.5 PG (27.0-31.0); MEAN CORPUSCULAR HGB CONC 33.9 g/dL (33.0-36.5); MEAN CORPUSCULAR VOLUME 87.1 FL (78-98); MEAN PLATELET VOLUME 7.9 FL (7.4-10.4); MONOCYTES # (AUTO) 1.1 X10'3 (0-0.9); MONOCYTES % (AUTO) 7.3 % (2-12); NEUTROPHILS % (AUTO) 66.6 % (42-75); PLATELET COUNT 272 X10'3 (140-440); RED BLOOD COUNT 3.42 X10'6 (4.20-5.60); RED CELL DISTRIBUTION WIDTH 14.3 % (11.5-14.5); WHITE BLOOD COUNT 14.9 X10'3 (4.5-11.0)
[2022-06-11] MEDS: pantoprazole 40mg Tablet.DR PO SCH (07:28)
[2022-06-11] MEDS: ROPINIRole 1mg tablet PO SCH ×2 (07:28→20:33)
[2022-06-11] MEDS: gabapentin 300mg capsule PO SCH ×3 (07:28→20:40)
[2022-06-11] MEDS: ascorbic acid 500mg tablet PO SCH ×2 (07:28→20:34)
[2022-06-11] MEDS: multivitamins, therapeutics tablet PO SCH (07:29)
[2022-06-11] MEDS: celeCOXIB 100mg capsule PO SCH ×2 (07:29→20:33)
[2022-06-11 10:00] VITALS: BP 102/52
[2022-06-11] MEDS ORDERED: LEVALBUTEROL IH PRN (16:00)
[2022-06-11] MEDS: magnesium hydroxide 30ml (MOM) UD suspension PO PRN (17:28)
--- NOTE | 2022-06-11 18:01 | NUR ---
Problems reprioritized. Patient report given, questions answered & plan of care reviewed with carol kaplan.
[2022-06-11 18:30] VITALS: BP 114/60
[2022-06-11 18:40] VITALS: BP 114/60
--- NOTE | 2022-06-11 20:00 | NUR ---
Pt's right hip surgical drsg intact without drainage. change today if pt is discharged today.
[2022-06-11] MEDS: DAPTOMYCIN IV SCH (20:32)
[2022-06-11] MEDS: NORMAL SALINE IV SCH (20:32)
[2022-06-11] MEDS: BECLOMETHASONE 80 MCG IH SCH (20:33)
[2022-06-11] MEDS: SPIRIVA RESPIMAT 2.5 MCG/ACTUATION IH SCH (20:34)
[2022-06-11] MEDS: atorvastatin 10mg tablet PO SCH (20:34)
[2022-06-11] MEDS: famotidine 20mg tablet PO SCH (20:35)
[2022-06-11] MEDS: montelukast 10mg tablet PO SCH (20:35)
[2022-06-11] MEDS: diltiazem CD 180mg cap (once-daily) PO SCH (20:40)
[2022-06-11 22:00] VITALS: BP 122/45
[2022-06-11] MEDS: sennosides 8.6mg tablet PO SCH (22:15)
[2022-06-11] MEDS: CefTRIAXone 2gm/D5W 50ml IV SCH (22:16)
--- NOTE | 2022-06-12 05:22 | NUR ---
Pt ambulated 3 times last nif
[2022-06-12 06:00] VITALS: BP 115/66
[2022-06-12] MEDS: HYDROcodone/acetaminophen 10/325mg tab PO PRN ×3 (06:05→20:56)
--- NOTE | 2022-06-12 06:30 | NUR ---
PT VOIDS INDEPENDENTLY IN BATHROOM
--- NOTE | 2022-06-12 06:42 | NUR ---
Problems reprioritized. Patient report given, questions answered & plan of care reviewed with Sammi. Addendum: 06/12/22 at 0642 by Milton Downey RN Amended: Links added.
[2022-06-12] MEDS: gabapentin 300mg capsule PO SCH ×3 (08:29→20:53)
[2022-06-12] MEDS: pantoprazole 40mg Tablet.DR PO SCH (08:30)
[2022-06-12] MEDS: celeCOXIB 100mg capsule PO SCH ×2 (08:30→20:53)
[2022-06-12] MEDS: ascorbic acid 500mg tablet PO SCH ×2 (08:30→20:53)
[2022-06-12] MEDS: multivitamins, therapeutics tablet PO SCH (08:30)
[2022-06-12] MEDS: ROPINIRole 1mg tablet PO SCH ×2 (08:30→20:53)
[2022-06-12 10:00] VITALS: BP 103/55
[2022-06-12] MEDS: BECLOMETHASONE 80 MCG IH SCH ×2 (16:21→20:52)
[2022-06-12 18:30] VITALS: BP 113/62
[2022-06-12] MEDS: CefTRIAXone 2gm/D5W 50ml IV SCH (20:30)
[2022-06-12] MEDS: atorvastatin 10mg tablet PO SCH (20:53)
[2022-06-12] MEDS: diltiazem CD 180mg cap (once-daily) PO SCH (20:53)
[2022-06-12] MEDS: famotidine 20mg tablet PO SCH (20:53)
[2022-06-12] MEDS: montelukast 10mg tablet PO SCH (20:53)
[2022-06-12] MEDS: NORMAL SALINE IV SCH (20:56)
[2022-06-12] MEDS: DAPTOMYCIN IV SCH (20:56)
[2022-06-12] MEDS: sennosides 8.6mg tablet PO SCH (21:00)
[2022-06-12] MEDS: SPIRIVA RESPIMAT 2.5 MCG/ACTUATION IH SCH (21:00)
[2022-06-12 22:00] VITALS: BP 109/61
[2022-06-13] MEDS: HYDROcodone/acetaminophen 10/325mg tab PO PRN ×2 (05:53→10:13)
--- NOTE | 2022-06-13 06:26 | NUR ---
Problems reprioritized. Patient report given, questions answered & plan of care reviewed with KELVIN. Addendum: 06/13/22 at 0626 by Milton Downey RN Amended: Links added.
[2022-06-13 07:00] VITALS: BP 117/53
--- NOTE | 2022-06-13 07:00 | NUR ---
Patient in room [facility]. I have received report from Karlos MEYERS and had the opportunity to ask questions and assume patient care.
[2022-06-13] MEDS: multivitamins, therapeutics tablet PO SCH (08:13)
[2022-06-13] MEDS: gabapentin 300mg capsule PO SCH ×2 (08:13→12:45)
[2022-06-13] MEDS: ROPINIRole 1mg tablet PO SCH (08:13)
[2022-06-13] MEDS: pantoprazole 40mg Tablet.DR PO SCH (08:13)
[2022-06-13] MEDS: celeCOXIB 100mg capsule PO SCH (08:14)
[2022-06-13] MEDS: ascorbic acid 500mg tablet PO SCH (08:14)
[2022-06-13] MEDS: BECLOMETHASONE 80 MCG IH SCH (08:18)
[2022-06-13 11:46] VITALS: BP 105/51
--- NOTE | 2022-06-13 13:37 | NUR ---
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 Pt on a regular diet and and eating well, documented with mostly 75-100% PO intake however down to 50% PO intake of three meals, overall averaging 82% PO intake throughout LOS. LBM 06/12, receiving routine and PRN bowel care. Will continue to follow and monitor further trends in PO intake and need for nutrition intervention. Recommendations: 1) Continue regular diet 2) Monitor need for ONS/additional protein 3) Continue routine Vitamin C and MVI for wound healing 4) Routine bowel care 5) Weekly scaled weights Addendum: 06/13/22 at [address] Amended: Links added.
--- NOTE | 2022-06-13 15:36 | NUR ---
Received discharge orders, reviewed with patient, patient verbalized understanding. PIV removed with cannula intact. patient belongings gathered waiting on instructions for home infusion from [facility] then can leave. Patient discharging with PICC.
--- NOTE | 2022-06-13 16:01 | NUR ---
Patient wheeled to lobby at 1550 with belongings.
== END 2022-06-13 15:45 | disposition home health service (06) | DRG 323 ==
LOC: PAS IN 11:24 → SUR 3N 17:30
PROVIDERS: ADMIT Orthopaedic Surgery; ATTEND Orthopaedic Surgery
PROC: 0SP90JZ Removal of Synthetic Substitute from Right Hip Joint, Open Approach (ICD-10-PCS; 2022-06-08)
PROC: 0SH908Z Insertion of Spacer into Right Hip Joint, Open Approach (ICD-10-PCS; 2022-06-08)
PROC: 0SR9069 Replacement of Right Hip Joint with Oxidized Zirconium on Polyethylene Synthetic Substitute, Cemented, Open Approach (ICD-10-PCS; principal; 2022-06-08 13:05)
PROC: 02HV33Z Insertion of Infusion Device into Superior Vena Cava, Percutaneous Approach (ICD-10-PCS; 2022-06-13)
PROC: B548ZZA Ultrasonography of Superior Vena Cava, Guidance (ICD-10-PCS; 2022-06-13)
DX: T84.51XA Infection and inflammatory reaction due to internal right hip prosthesis, initial encounter (principal); D72.10 Eosinophilia, unspecified; I10 Essential (primary) hypertension; Z96.641 Presence of right artificial hip joint; Z20.822 Contact with and (suspected) exposure to COVID-19; Y83.1 Surgical operation with implant of artificial internal device as the cause of abnormal reaction of the patient, or of later complication, without mention of misadventure at the time of the procedure; J44.9 Chronic obstructive pulmonary disease, unspecified; Z79.51 Long term (current) use of inhaled steroids; Z79.82 Long term (current) use of aspirin; Y92.89 Other specified places as the place of occurrence of the external cause; Z79.899 Other long term (current) drug therapy
CPT/HCPCS: 36415; 36569; 71046; 72170; 76942; 80051; 80053; 82948; 85025; 85651; 86140; 86885; 86900; 86901; 87070; 87075; 87081; 87811; 93005; 94640; 94760; 97116; 97161; 97530; A4615; A4618; A7000; C1713; C1751; C1776; G0378; J0171; J0690; J0696; J0735; J0878; J1100; J1170; J1580; J1885; J2250; J2274; J2704; J2710; J2765; J2795; J3010; J3260; J3370; J3480; J3490; J7040; J7060; J7120; Q0163

== ENCOUNTER 2023-12-31 08:53 | Emergency (ER) | payer MEDICAID ==
[~2023-12-31] VITALS: Ht 177.8 cm; Wt 90.8 kg
[~2023-12-31 08:53] MED LIST changes: -BECL7.3A INH; +BUDE10.22 INH; -DICL-343 PO; +ROPI1TAB47 PO; -ROPI1TAB6 PO; +SERT-153 PO; -acetaminophen 325mg tablet PO ONE; -albuterol 2.5 MG/3 ML nebule NEB ONE; -ceFAZolin inj. 2,000 MG in dextrose 5%-water 100 ML IV ONE; -celeCOXIB 100mg capsule PO ONE; -famotidine 20mg tablet PO ONE; -gabapentin 300mg capsule PO ONE; -metoclopramide 5 mg/ml inj IV ONE; -oxyCODONE SR 10mg (sust. release) tab -2 tabs (20mg) PO ONE; -ringers solution, lacted 1,000 ML IV SCH; -tranexamic acid inj. 1,000 MG in normal saline IV soln 100ML IV ONE; -vancomycin 1,500 MG in NS 300ml IV soln IV ONE
[2023-12-31] MEDS: diphenhydrAMINE 50 mg/ml inj IV ONE (09:56)
[2023-12-31] MEDS: famotidine/PF 10 mg/ml inj IV ONE (09:57)
[2023-12-31] MEDS: dexamethasone sod phosphate 10mg/ml inj IV STA (09:59)
[2023-12-31] MEDS: epiNEPHrine 1 mg/ml inj IM ONE (11:55)
[2023-12-31] MEDS ORDERED: HYDR-3686 PO (13:46)
[2023-12-31] MEDS ORDERED: EPIN0.3P3 IM (13:46)
[2023-12-31] MEDS ORDERED: PRED20TA PO (13:46)
[2023-12-31 13:57] VITALS: BP 128/77; PULSE 79; RESP 16; TEMP 97.9; O2SAT 94
== END 2023-12-31 13:59 | disposition home or self-care (01) ==
LOC: ER 08:53
DX: L50.9 Urticaria, unspecified (principal); J45.909 Unspecified asthma, uncomplicated; K21.9 Gastro-esophageal reflux disease without esophagitis; Z88.0 Allergy status to penicillin; Z88.1 Allergy status to other antibiotic agents; Z88.5 Allergy status to narcotic agent; Z91.041 Radiographic dye allergy status; Z79.899 Other long term (current) drug therapy; Z98.890 Other specified postprocedural states
CPT/HCPCS: 96372; 96374; 96375; 99285; J0171; J1100; J1200; J3490

== ENCOUNTER 2024-07-24 12:47 | Emergency (ER) | payer MEDICAID ==
[~2024-07-24] VITALS: Ht 177.8 cm; Wt 77.5 kg
[~2024-07-24 12:47] MED LIST changes: +EPIN0.3P3 IM; -LEVA15HF4 INH; +LEVA15HF9 INH
[2024-07-24 12:56] VITALS: TEMP 97.8
[2024-07-24] MEDS ORDERED: iohexol 300mg/ml 100ml inj. ONE (15:27)
[2024-07-24 15:39] LABS: BASOPHILS # (AUTO) 0.1 X10'3 (0-0.2); BASOPHILS % (AUTO) 0.9 % (0-1); EOSINOPHILS # (AUTO) 0.2 X10'3 (0-0.9); EOSINOPHILS % (AUTO) 2.1 % (0-6); HEMATOCRIT 40.6 % (35.0-45.0); HEMOGLOBIN 13.9 g/dl (12.0-16.0); LYMPHOCYTES # (AUTO) 1.7 X10'3 (1.1-4.8); LYMPHOCYTES % (AUTO) 21.2 % (21-51); MEAN CORPUSCULAR HEMOGLOBIN 28.2 PG (27.0-31.0); MEAN CORPUSCULAR HGB CONC 34.3 g/dL (33.0-36.5); MEAN CORPUSCULAR VOLUME 82.4 FL (78-98); MEAN PLATELET VOLUME 7.5 FL (7.4-10.4); MONOCYTES # (AUTO) 0.5 X10'3 (0-0.9); MONOCYTES % (AUTO) 6.8 % (2-12); NEUTROPHILS # (AUTO) 5.4 X10'3 (1.8-7.7); PLATELET COUNT 244 X10'3 (140-440); RED BLOOD COUNT 4.92 X10'6 (4.20-5.60); RED CELL DISTRIBUTION WIDTH 15.2 % (11.5-14.5); WHITE BLOOD COUNT 7.8 X10'3 (4.5-11.0)
[2024-07-24 15:55] LABS: ALANINE AMINOTRANSFERASE 14 U/L (12-78); ALBUMIN 3.6 G/DL (3.4-5.0); ALBUMIN/GLOBULIN RATIO 0.9 (1.1-1.5); ALKALINE PHOSPHATASE 110 IU/L (46-116); ANION GAP 7 (8-16); ASPARTATE AMINO TRANSFERASE 14 U/L (10-37); BILIRUBIN,TOTAL 0.3 MG/DL (0.1-1.0); BLOOD UREA NITROGEN 9 MG/DL (7-18); BUN/CREATININE RATIO 9.8 (10.0-20.0); CALCIUM 9.2 MG/DL (8.5-10.1); CHLORIDE 105 MMOL/L (99-107); CREATININE 0.92 MG/DL (0.40-0.90); GLUCOSE 96 MG/DL (70-104); POTASSIUM 4.3 MMOL/L (3.5-5.1); SODIUM 139 MMOL/L (135-145); TOTAL CARBON DIOXIDE 27.5 MMOL/L (24-32); TOTAL PROTEIN 7.8 G/DL (6.4-8.2); eCRCL 68 ML/MIN; eGFR 62 ML/MIN
[2024-07-24] MEDS ORDERED: DOXY100C43 PO (17:42)
[2024-07-24] MEDS: DOXYCYCLINE 100MG CAPSULE PO STA (18:03)
[2024-07-24 18:04] VITALS: BP 139/74; PULSE 73; RESP 18; O2SAT 98
== END 2024-07-24 18:15 | disposition home or self-care (01) ==
LOC: ER 12:48
DX: L03.317 Cellulitis of buttock (principal); L02.31 Cutaneous abscess of buttock; J45.909 Unspecified asthma, uncomplicated; K21.9 Gastro-esophageal reflux disease without esophagitis; Z88.0 Allergy status to penicillin; Z88.1 Allergy status to other antibiotic agents; Z88.5 Allergy status to narcotic agent; Z88.8 Allergy status to other drugs, medicaments and biological substances; Z90.49 Acquired absence of other specified parts of digestive tract; Z98.890 Other specified postprocedural states
CPT/HCPCS: 36415; 73701; 80053; 85025; 99285; Q9967